=== PATIENT | male | born 1935 | race Caucasian/White ===

== ENCOUNTER 2023-09-17 10:14 | Outpatient (RCR) | payer MEDICARE, BC, SELFPAY ==
[2023-09-17 10:59] VITALS: BP 127/73; PULSE 86; RESP 18; TEMP 36.1; BMI 32.8
--- NOTE | 2023-09-17 13:16 | HP.PCM_ITS ---
History of Present Illness Date of Service: 09/17/23 Chief Complaint: Follow-up open Shearing wound on right buttocks History of Wound: 88-year-old white male with a superficial open wound on his right buttocks with scabbing and areas near the anus. History of the same on the left side. Lives alone daughters are just close around the corner keep an eye on him. Daughter state he does sleep in his bed but likes to get up in the night when he gets confused and sleeps in a chair. Does have a recliner. Discussed with daughter that it is Shearing that it is getting too and that the recliner he sits and he should have a gel cushion to sit on solid. No obvious malnutrition noted skin turgor is good no sign of infection no redness no swelling no depth. History of diabetes, BPH and has a suprapubic catheter. Also has Parkinson's which makes him unsteady on his feet. PFSH Home Medications ?Medication ?Instructions ?Recorded ?Last Taken ?Type biotin 5 mg capsule (Meribin) 5 mg PO DAILY 09/17/23 Unknown History calcium cmb 1 tab PO DAILY 09/17/23 Unknown History [id number] 120 mg-1,000 unit-10 mg tablet carbidopa 25 mg-levodopa 100 mg 2 tab PO 4X/DAY 09/17/23 Unknown History tablet cephalexin 500 mg capsule 500 mg PO BID 09/17/23 Unknown History cranberry extract 200 mg capsule 200 mg PO DAILY 09/17/23 Unknown History empagliflozin 10 mg tablet 10 mg PO DAILY 09/17/23 Unknown History (Jardiance) finasteride 5 mg tablet (Proscar) 5 mg PO DAILY 09/17/23 Unknown History furosemide 20 mg tablet (Lasix) 20 mg PO BID 09/17/23 Unknown History glimepiride 2 mg tablet 2 mg PO BID 09/17/23 Unknown History glimepiride 2 mg tablet 2 mg PO BID 09/17/23 Unknown History glimepiride 2 mg tablet 2 mg PO QDAY 09/17/23 Unknown History insulin glargine 100 unit/mL 5 unit subcut QPM 09/17/23 Unknown History subcutaneous solution (Lantus U-100 Insulin) lisinopril 20 mg tablet 20 mg PO DAILY 09/17/23 Unknown History mecobalamin (vitamin B12) 1,000 1,000 mcg PO DAILY 09/17/23 Unknown History mcg chewable tablet (B12 Active) metformin 500 mg tablet,extended 1,000 mg PO BID 09/17/23 Unknown History release 24 hr methimazole 10 mg tablet 10 mg PO 09/17/23 Unknown History methimazole 5 mg tablet 10 mg PO DAILY 09/17/23 Unknown History multivitamin (Daily Multi-Vitamin 1 tab PO DAILY 09/17/23 Unknown History tablet) nifedipine 60 mg tablet,extended 60 mg PO DAILY 09/17/23 Unknown History release rosuvastatin 10 mg tablet 10 mg PO DAILY 09/17/23 Unknown History Allergy/AdvReac Type Severity Reaction Status Date / Time Sulfa (Sulfonamide Allergy Mild Shortness Verified 09/17/23 10:57 Antibiotics) of breath ROS Constitutional Constitutional: Reports systems reviewed and no addt'l complaints, except as documented Eyes Eyes: Reports systems reviewed and no addt'l complaints, except as documented ENT HEENT: Reports systems reviewed and no addt'l complaints, except as documented Cardiovascular Cardiovascular: Reports systems reviewed and no addt'l complaints, except as documented Respiratory/Chest Respiratory/Chest: Reports systems reviewed and no addt'l complaints, except as documented Gastrointestinal Gastrointestinal: Reports systems reviewed and no addt'l complaints, except as documented Genitourinary Genitourinary: Reports systems reviewed and no addt'l complaints, except as documented Musculoskeletal Musculoskeletal: Reports systems reviewed and no addt'l complaints, except as documented Integumentary Integumentary: Reports wounds and other Details: Scabbed and open wound on right buttocks near anus of Shearing superficial wound. Neurologic Neurologic: Reports systems reviewed and no addt'l complaints, except as documented Psychiatric Psychiatric: Reports systems reviewed and no addt'l complaints, except as documented Endocrine Endocrinology: Reports systems reviewed and no addt'l complaints, except as documented Hematologic/Lymphatic Hematologic/Lymphatic: Reports systems reviewed and no addt'l complaints, except as documented Allergic/Immunologic Allergic/Immunologic: Reports systems reviewed and no addt'l complaints, except as documented Vital Signs Vital Signs Vital Signs: 09/17/23 10:59 Temperature 96.9 F L Temperature Source Temporal Pulse Rate 86 Respiratory Rate 18 Blood Pressure 127/73 H Blood Pressure Mean 91 Blood Pressure Source Monitor Blood Pressure Position Semi-Fowlers Blood Pressure Location Left Arm Weight Weight: 197 lb Body Mass Index (BMI) 32.8 Physical Exam Const oriented x3 General Appearance: cooperative Exam Limitations: no limitations HEENT normocephalic Head and Scalp: normal to inspection Eyes PERRL Resp normal respiratory effort Effort and Inspection: able to speak in complete sentences Auscultation: clear to auscultation bilaterally Cardio regular rate and regular rhythm Palpation: normal PMI Rate: regular rate Rhythm: regular rhythm GI Auscultation: normoactive bowel sounds Back/Spine Cervical Spine: cervical ROM normal Thoracic Spine / Upper Back: normal to inspection Lumbar Spine / Lower Back: normal to inspection Extremity normal to inspection Skin Wounds: wounds noted Wound Narrative: Wounds noted right buttocks scarring on left buttocks superficial wound on the r ight near his anus Neuro oriented x3 Psych Appearance: grossly normal Speech: normal speech Thought Content: normal thought content Judgement: judgement good Debridement Note Debridement Note Wound debrided: Right buttocks ulcer stage II Laterality: Right Wound Grade/Stage: Stage II Anesthesia Used: 5% Lidocaine Gel Depth: Down to and including healthy tissue Percentage of wound debrided: 100 Instrument Used: 5mm curette and - (Scissors) Tissue Removed: Devitalized tissue fibrin Severity: Limited To Skin Breakdown Amount of bleeding with debridement: Mild Bleeding Controlled with: Compression and gauze Patient tolerated procedure: Patient tolerated procedure well Post-Debridement Measurements and Additional Note: Post-Debridement Measurements/Treatment MARTHA - Nurse 1 - General Ulcer Assessment Start: 09/17/23 10:54 Freq: Status: Active Protocol: BRIAN Activity Type Activity Date Activity User E-sign Co-sign Detail Recorded Client Recorded Date Recorded By Document 09/17/23 10:59 RB wound cnter 09/17/23 11:06 RB 09/17/23 10:59 - Today's Visit Information Type of service Initial Visit Arrival Mode Ambulatory Transfer Assistance None Patient Identification Verified (Name & Yes ) Patient Requires Transmission-Based No Precautions Height and Weight Height 5 ft 5 in Weight 197 lb Weight in Pounds 197.0 lbs Body Mass Index (BMI) 32.8 BMI Classification Obese BSA - Gauri 1.97 Vital Signs Temperature (97.8 F-99.1 F) 96.9 F L Temperature Source Temporal Pulse Rate (60-100) 86 Pulse Location Monitor Respiratory Rate (12-18) 18 Respiratory rate source Observation Blood Pressure (90/60-120/80) 127/73 H Blood Pressure Mean 91 Source Monitor Position Semi-Fowlers Blood Pressure Location Left Arm History Since Last Visit- (Skip if this is Patient's initial visit) Have you changed medications since your No last visit? Any new allergies or adverse reactions No Had a fall/change in ADL's that may No increase risk of falls Signs or symptoms of abuse and/or No neglect since last visit Have you been in the hospital since your No last visit? Has dressing in place as prescribed Yes Has compression in place as prescribed No Has offloadiing in place as prescribed No Experienced any changes in pain level or No management Pain Scale: 0-10 Numeric Is Patient Pain Free? Yes Communication Assessment Preferred language Mosotho Felt Machine Mechanic Required No Able to Read Yes Able to Write Yes Communication Tools None Right Hearing Abillity Normal Left Hearing Abillity Normal Visual Assistive Devices Glasses Teaching Assessment Preferences Verbal,Written, Demonstration Barriers to Learning None Readiness To Learn Good Willingness to Engage in Self Management Med Activies Readiness to Engage in Self Management Med Activities Anxiety Level Calm Cooperation Cooperative Perception Coherent Interest in Health Problem Asks Questions Education Importance Acknowledges Need Does Patient Smoke tobacco or other Yes substances Is Patient Diabetic Yes Functional Assessment Recent Decline in Ability to Perform Denies Any Declines Assistive Device With Patient No Culture/Presybeterian/Geothermal Field Technician Cultural/Presybeterian Needs that may affect No Treatment Plan Would you allow our hospital physician coding specialist to No meet you for the purpose of spiritual/ emotional support? Geothermal Field Technician to contact place of yazidi No Teaching: Wound Center *Welcome to the Wound Center -Person Taught Patient -Teaching Method Discussion, Demonstration -Response to teaching Verbalize understanding - Nurse 1 - General Ulcer Measurement Start: 09/17/23 10:54 Freq: Status: Active Protocol: Activity Type Activity Date Activity User E-sign Co-sign Detail Recorded Client Recorded Date Recorded By Document 09/17/23 10:59 RB wound cnter 09/17/23 11:06 RB 09/17/23 10:59 Wound Center Nurse 1 1. R buttock - cluster -Combined with other wound No -Current Size (cm) - Length 0.6 -Current Size (cm) - Width 0.4 -Current Size (cm) - Depth 0.1 -Total Square Cm 0.24 -Photo Taken Yes -Tunneling No -Undermining/Tunneling No -Circular Undermining No -Exudate Amt Medium -Exudate Type Serosanguineous -Wound Margin Distinct, Outline Attached -Granulation Amt Medium (34-66%) -Granulation Quality [place] -Slough/Fibrin Yes -Necrosis Amt Medium (34-66%) -Necrotic Tissue Type Adherent Slough -Structure Exposed N/A -Texture (Abbie-wound Skin Appearance) Assessed -Moisture (Abbie-wound Skin Appearance) Assessed -Color (Abbie-wound Skin Appearance) Assessed -Temperature (Abbie-wound Skin No Abnormality Appearance) (Pt Warm) -Tenderness on Palpation (Abbie-wound No Skin Appearance) -Ulcer Cleansing Wound Cleanser -Foul Odor after Cleansing No -Anesthetic Used 5% Lidocaine Gel WC - Nurse 2 - General Ulcer CM Notes Start: 09/17/23 10:54 Freq: Status: Active Protocol: Activity Type Activity Date Activity User E-sign Co-sign Detail Recorded Client Recorded Date Recorded By Document 09/17/23 11:22 [id number] 09/17/23 11:26 09/17/23 11:22 Wound Center Nurse 2 -Time 11:22 -Correct Patient Yes -Correct Side, Site, Position Yes -Correct Procedure Yes -Procedure Performed Yes -Type of Procedure Debridement -Clinical Debridement Subcutaneous -Tissue Removed Subcutaneous -Post Debridement (cm) - Length 1.7 -Post Debridement (cm) - Width 0.5 -Post Debridement (cm) - Depth 0.1 -Total Square (Post) (cm) 0.85 -Area of Debridement (cm) - Length 1.7 -Area of Debridement (cm) - Width 0.5 -Total Square (Area) (cm) 0.85 -Tunneling No -Undermining/Tunneling No -Circular Undermining No -Wound/Ulcer Outcome Not Healed -Ulcer Cleansing Rinsed/ Irrigated with Saline -Bleeding Controlled with Pressure -Treatment Response Procedure Tolerated Well -Debridement - Subq, 1st 20sq cm Yes Pain Scale: 0-10 Numeric Is Patient Pain Free? Yes - Nurse 3 - General Ulcer D/C NN Start: 09/17/23 10:54 Freq: Status: Active Protocol: Activity Type Activity Date Activity User E-sign Co-sign Detail Recorded Client Recorded Date Recorded By Document 09/17/23 11:39 [facility] [id number] 09/17/23 11:40 [facility] 09/17/23 11:39 Wound Care Center Nurse 3 1. R buttock - cluster -Ulcer Cleansing Rinsed/ Irrigated with Saline -Foul Odor after Cleansing No -Primary Dressing Applied Fibracol Plus 4x4 -Other Dressing abd -Primary Dressing Covered/Secured with Secured with Tape -Fibracol Plus 4x4 1 Treatment Response Procedure Tolerated Well Pain Scale: 0-10 Numeric Is Patient Pain Free? Yes WC - Visit Discharge Discharge Condition Stable Ambulatory Status Ambulatory,Cane Transportation Private Auto Accompanied by seymour Assessment/Plan Assessment/Plan (1) Decubitus ulcer of buttock, stage 2: CODE(S): L89.302 - Pressure ulcer of unspecified buttock, stage 2 QUALIFIERS: Laterality: right Qualified Code(s): L89.312 - Pressure ulcer of right buttock, stage 2 PLAN: Wash the right buttocks with antibacterial soap and water pat dry apply Fibracol to wound base moistened and cover with a dry dressing 1-2 3 times a day depending on bathroom usage. Follow-up in 1 week (2) Diabetes mellitus with hyperglycemia: CODE(S): E11.65 - Type 2 diabetes mellitus with hyperglycemia QUALIFIERS: Diabetes mellitus type: type 2 Diabetes mellitus chcf insulin use: without terminal operations supervisor use Qualified Code(s): E11.65 - Type 2 diabetes mellitus with hyperglycemia (3) Parkinsons disease: CODE(S): G20.A1 - Parkinson's disease without dyskinesia, without mention of fluctuations QUALIFIERS: Dyskinesia presence: unspecified whether dyskinesia Fluctuating manifestations: unspecified whether manifestations fluctuate Qualified Code(s): G20.A1 - Parkinson's disease without dyskinesia, without mention of fluctuations
== END 2023-09-19 23:59 | disposition home or self-care (01) ==
LOC: WC 10:14
PROVIDERS: PCP Internal Medicine; Referring Provider Internal Medicine; Visit Provider Nurse Practitioner
DX: L89.312 Pressure ulcer of right buttock, stage 2 (principal); G20.A1 Parkinson's disease without dyskinesia, without mention of fluctuations; E11.65 Type 2 diabetes mellitus with hyperglycemia
CPT/HCPCS: 11042; 99203; G0463

== ENCOUNTER 2023-09-24 10:08 | Outpatient (RCR) | payer MEDICARE, BC, SELFPAY ==
[2023-09-20 02:41] VITALS: BP 127/73; PULSE 86; RESP 18; TEMP 36.1; BMI 32.8
[2023-09-24 10:29] VITALS: BP 103/50; PULSE 70; RESP 18; TEMP 36.6; BMI 32.8
--- NOTE | 2023-09-24 11:40 | PCM.WC.PN ---
History of Present Illness Date of Service: 09/24/23 Chief Complaint: Follow-up open Shearing wound on right buttocks History of Wound: 88-year-old white male with a superficial open wound on his right buttocks with scabbing and areas near the anus. History of the same on the left side. Lives alone daughters are just close around the corner keep an eye on him. Daughter state he does sleep in his bed but likes to get up in the night when he gets confused and sleeps in a chair. Does have a recliner. Discussed with daughter that it is Shearing that it is getting too and that the recliner he sits and he should have a gel cushion to sit on solid. No obvious malnutrition noted skin turgor is good no sign of infection no redness no swelling no depth. History of diabetes, BPH and has a suprapubic catheter. Also has Parkinson's which makes him unsteady on his feet. Progress of Wound: Right buttocks is healed no sign of infection patient has been doing everything he supposed to and it shows. Subjective Subjective Is pleased with outcomes and will be discharged Objective Data Objective Data Well-healed no sign of infection patient will be discharged from the wound center can follow-up as needed Vital Signs: Vital Signs Temp Pulse Resp BP 98 F 70 18 103/50 L 09/24/23 10:29 09/24/23 10:29 09/24/23 10:09/24/23 10:29 Weight: 197 lb Body Mass Index (BMI) 32.8 Physical Exam Const oriented x3 General Appearance: cooperative Exam Limitations: no limitations HEENT normocephalic Head and Scalp: normal to inspection Eyes PERRL Resp normal respiratory effort Effort and Inspection: able to speak in complete sentences Auscultation: clear to auscultation bilaterally Cardio regular rate and regular rhythm Palpation: normal PMI Rate: regular rate Rhythm: regular rhythm GI Auscultation: normoactive bowel sounds Back/Spine Cervical Spine: cervical ROM normal Thoracic Spine / Upper Back: normal to inspection Lumbar Spine / Lower Back: normal to inspection Extremity normal to inspection Skin Wounds: wounds noted Wound Narrative: Wounds noted right buttocks scarring on left buttocks superficial wound on the right near his anus Neuro oriented x3 Psych Appearance: grossly normal Speech: normal speech Thought Content: normal thought content Judgement: judgement good Debridement Note Debridement Note No debridement was completed: No debridement was completed today Post-Debridement Measurements and Additional Note: Post-Debridement Measurements/Treatment WC - Nurse 1 - General Ulcer Assessment Start: 09/24/23 10:28 Freq: Status: Active Protocol: BRIAN Activity Type Activity Date Activity User E-sign Co-sign Detail Recorded Client Recorded Date Recorded By Document 09/24/23 10:29 [email or web address] 09/24/23 10:39 MI 09/24/23 10:29 - Today's Visit Information Type of service Follow-up Visit (Physician/TAWER ) Arrival Mode Ambulatory Accompanied by daughter Patient Identification Verified (Name & Yes ) Safety Precautions Fall Prevention Height and Weight Body Mass Index (BMI) 32.8 BMI Classification Obese Vital Signs Temperature (97.8 F-99.1 F) 98 F Temperature Source Temporal Pulse Rate (60-100) 70 Pulse Location Monitor Respiratory Rate (12-18) 18 Respiratory rate source Observation Blood Pressure (90/60-120/80) 103/50 L Blood Pressure Mean (mm Hg) 67 Source Monitor Position Sitting Blood Pressure Location Right Arm History Since Last Visit- (Skip if this is Patient's initial visit) Has dressing in place as prescribed Yes Has compression in place as prescribed N/A Has offloadiing in place as prescribed N/A Experienced any changes in pain level or Yes management Left Footwear Regular Shoe Right Footwear Regular Shoe Pain Scale: 0-10 Numeric Is Patient Pain Free? Yes - Nurse 1 - General Ulcer Measurement Start: 09/24/23 10:28 Freq: Status: Active Protocol: Activity Type Activity Date Activity User E-sign Co-sign Detail Recorded Client Recorded Date Recorded By Document 09/24/23 10:29 [facility] [email or web address] 09/24/23 10:39 MI 09/24/23 10:29 Wound Center Nurse 1 1. R buttock - cluster -Current Size (cm) - Length 0.1 -Current Size (cm) - Width 0.1 -Current Size (cm) - Depth 0.1 -Total Square Cm 0.01 -Date of Last Picture (Recall this 09/24/23 field) -Photo Taken Yes -Epithelialization Large 67-100% -Tunneling No -Undermining/Tunneling No -Circular Undermining No -Wound Margin Flat & Intact -Granulation Amt None Present (0 %) -Slough/Fibrin No -Texture (Abbie-wound Skin Appearance) Assessed -Moisture (Abbie-wound Skin Appearance) Assessed -Color (Abbie-wound Skin Appearance) Assessed -Temperature (Abbie-wound Skin No Abnormality Appearance) (Pt Warm) -Tenderness on Palpation (Abbie-wound No Skin Appearance) -Ulcer Cleansing Soap and Water -Foul Odor after Cleansing No Lower Limb Edema Present NA - Nurse 2 - General Ulcer CM Notes Start: 09/24/23 10:28 Freq: Status: Active Protocol: Activity Type Activity Date Activity User E-sign Co-sign Detail Recorded Client Recorded Date Recorded By Document 09/24/23 10:56 [facility] [id number] 09/24/23 10:57 [facility] 09/24/23 10:56 Wound Center Nurse 2 1. R buttock - cluster -Post Debridement (cm) - Length 0 -Post Debridement (cm) - Width 0 -Post Debridement (cm) - Depth 0 -Total Square (Post) (cm) 0 -Area of Debridement (cm) - Length 0 -Area of Debridement (cm) - Width 0 -Total Square (Area) (cm) 0 -Wound/Ulcer Outcome Healed- Epithelialized Pain Scale: 0-10 Numeric Is Patient Pain Free? Yes - Nurse 3 - General Ulcer D/C NN Start: 09/24/23 10:28 Freq: Status: Active Protocol: Activity Type Activity Date Activity User E-sign Co-sign Detail Recorded Client Recorded Date Recorded By Document 09/24/23 11:04 [facility] [email or web address] 09/24/23 11:06 MT 09/24/23 11:04 Wound Care Center Nurse 3 1. R buttock - cluster -Primary Dressing Applied Mepilex Border -Mepilex Border 3 Pain Scale: 0-10 Numeric Is Patient Pain Free? Yes WC - Visit Discharge Discharge Condition Stable Ambulatory Status Cane Transportation Private Auto Medication Reconcilliation completed & No provided to patient/care provider Clinical Summary of Care Provided Yes Notes: pt is healed. daughter and pt verbalized understanding of wound care. Assessment/Plan Assessment/Plan (1) Decubitus ulcer of buttock, stage 2: CODE(S): L89.302 - Pressure ulcer of unspecified buttock, stage 2 QUALIFIERS: Laterality: right Qualified Code(s): L89.312 - Pressure ulcer of right buttock, stage 2 PLAN: Discharge from the wound center follow-up as needed Continue using the gel cushion (2) Diabetes mellitus with hyperglycemia: CODE(S): E11.65 - Type 2 diabetes mellitus with hyperglycemia QUALIFIERS: Diabetes mellitus type: type 2 Diabetes mellitus fpc insulin use: without fpc use Qualified Code(s): E11.65 - Type 2 diabetes mellitus with hyperglycemia (3) Parkinsons disease: CODE(S): G20.A1 - Parkinson's disease without dyskinesia, without mention of fluctuations QUALIFIERS: Dyskinesia presence: unspecified whether dyskinesia Fluctuating manifestations: unspecified whether manifestations fluctuate Qualified Code(s): G20.A1 - Parkinson's disease without dyskinesia, without mention of fluctuations
== END 2023-09-24 11:41 | disposition home or self-care (01) ==
LOC: WC 10:08
PROVIDERS: PCP Internal Medicine; Referring Provider Internal Medicine; Visit Provider Nurse Practitioner
DX: L89.312 Pressure ulcer of right buttock, stage 2 (principal); G20.A1 Parkinson's disease without dyskinesia, without mention of fluctuations; E11.65 Type 2 diabetes mellitus with hyperglycemia
CPT/HCPCS: 99213; G0463

== ENCOUNTER 2024-09-15 09:00 | Outpatient (RCR) | payer MEDICARE, BC, SELFPAY ==
[2024-09-08 08:15] VITALS: BP 147/70; PULSE 59; RESP 18; TEMP 36.6; BMI 25.4
--- NOTE | 2024-09-08 09:58 | PCM.WC.PN ---
History of Present Illness Date of Service: 09/08/24 Chief Complaint: Follow-up open open wound on L buttocks History of Wound: 89-year-old white male who [facility] has a suprapubic catheter and has Parkinson's and is diabetic. Does not walk well at all so he sits in a chair most of the day or lays down and has developed an open sore on and off on the left and right buttocks. Today he is here for the left buttocks which is healing nicely but it still open mostly a stage II. Progress of Wound: Open wound left buttocks stage II. Patient is well-nourished and skin is supple around the area there is no redness or sign of infection or pus or drainage. Subjective Subjective Patient does not talk much because of his Parkinson's he is more nonverbal he does speak when spoken to but very little and he has problems with walking and care for himself patient is being taken care of by [facility]. He does have a suprapubic catheter and he does have an open area on his left buttocks that is not full-thickness. Objective Data Objective Data As stated above skin is supple around the area of the wound is dark and erythematous no sign of infection such as increased pain redness or drainage half healed. Will use fibber call Adaptic and foam. He has no incontinence issues with the urine because he is got a suprapubic catheter. Vital Signs: Vital Signs Temp Pulse Resp BP 97.8 F 59 L 18 147/70 H 09/08/24 08:15 09/08/24 08:15 09/08/24 08:15 09/08/24 08:15 Weight: 167 lb 2.751 oz Body Mass Index (BMI) 25.4 Lab / Micro Data Attestation: I reviewed the patient's lab results. Debridement Note Debridement Note Wound debrided: Left buttocks wound decubitus ulcer Laterality: Left Wound Grade/Stage: Stage II Type of Debridement: Excisional debridement Anesthesia Used: 5% Lidocaine Gel Depth: Down to and including healthy tissue and in the subcutaneous layer Instrument Used: 5mm curette Tissue Removed: Fibrin Severity: Limited To Skin Breakdown Amount of bleeding with debridement: Mild Bleeding Controlled with: Compression and gauze Patient tolerated procedure: Patient tolerated procedure well Post-Debridement Measurements and Additional Note: Post-Debridement Measurements/Treatment WC - Nurse 1 - General Ulcer Assessment Start: 09/08/24 08:12 Freq: Status: Active Protocol: BRIAN Activity Type Activity Date Activity User E-sign Co-sign Detail Recorded Client Recorded Date Recorded By Document 09/08/24 08:15 MARIYA [id number] 09/08/24 08:31 DL 09/08/24 08:15 - Today's Visit Information Type of service Initial Visit Arrival Mode Wheelchair Transfer Assistance Manual Transfer Assist (Other) x2 Patient Identification Verified (Name & Yes ) Patient Requires Transmission-Based No Precautions Height and Weight Height 5 ft 8 in Weight 167 lb 2.751 oz Weight in Pounds 167.2 lbs Body Mass Index (BMI) 25.4 BMI Classification Overweight Vital Signs Temperature (97.8 F-99.1 F) 97.8 F Temperature Source Temporal Pulse Rate (60-100) 59 L Pulse Location Monitor Respiratory Rate (12-18) 18 Respiratory rate source Observation Blood Pressure (90/60-120/80) 147/70 H Blood Pressure Mean (mm Hg) 95 Source Monitor Pain Scale: 0-10 Numeric Is Patient Pain Free? Yes Communication Assessment Preferred language Maltese Senior Group Manager Required No Able to Read Yes Able to Write Yes Communication Tools None Right Hearing Abillity Normal Left Hearing Abillity Normal Visual Assistive Devices Glasses Teaching Assessment Preferences Verbal,Written, Demonstration Barriers to Learning None Readiness To Learn Good Willingness to Engage in Self Management Med Activies Readiness to Engage in Self Management Med Activities Anxiety Level Calm Cooperation Cooperative Perception Coherent Interest in Health Problem Asks Questions Education Importance Acknowledges Need Does Patient Smoke tobacco or other No substances Is Patient Diabetic No Functional Assessment Recent Decline in Ability to Perform Ambulation, Transferring Assistive Device With Patient [facility] - Nurse 1 - General Ulcer Measurement Start: 09/08/24 08:12 Freq: Status: Active Protocol: Activity Type Activity Date Activity User E-sign Co-sign Detail Recorded Client Recorded Date Recorded By Document 09/08/24 08:15 MARIYA [id number] 09/08/24 08:31 DL 09/08/24 08:15 Wound Center Nurse 1 #2 L Buttocks -Current Size (cm) - Length 0.8 -Current Size (cm) - Width 0.5 -Current Size (cm) - Depth 0.1 -Total Square Cm 0.40 -Photo Taken Yes -Exudate Amt None Present -Wound Margin Distinct, Outline Attached -Granulation Amt Large (67-100%) -Granulation Quality [employer] -Necrosis Amt None Present (0 %) -Structure Exposed N/A -Texture (Abbie-wound Skin Appearance) Scarring -Moisture (Abbie-wound Skin Appearance) No Abnormality -Color (Abbie-wound Skin Appearance) No Abnormality -Temperature (Abbie-wound Skin No Abnormality Appearance) (Pt Warm) -Tenderness on Palpation (Abbie-wound Yes Skin Appearance) -Ulcer Cleansing Rinsed/ Irrigated with Saline -Foul Odor after Cleansing No -Anesthetic Used 5% Lidocaine Gel MARTHA - Nurse 2 - General Ulcer CM Notes Start: 09/08/24 08:12 Freq: Status: Active Protocol: Activity Type Activity Date Activity User E-sign Co-sign Detail Recorded Client Recorded Date Recorded By Document 09/08/24 08:46 [facility] [id number] 09/08/24 08:51 [facility] 09/08/24 08:46 Wound Center Nurse 2 #3- L BUTTOCK STAGE 2 -Time 08:47 -Correct Patient Yes -Correct Side, Site, Position Yes -Correct Procedure Yes -Procedure Performed Yes -Type of Procedure Debridement -Clinical Debridement Subcutaneous -Tissue Removed Subcutaneous -Post Debridement (cm) - Length 0.6 -Post Debridement (cm) - Width 0.6 -Post Debridement (cm) - Depth 0.2 -Total Square (Post) (cm) 0.36 -Area of Debridement (cm) - Length 0.6 -Area of Debridement (cm) - Width 0.6 -Total Square (Area) (cm) 0.36 -Tunneling No -Undermining/Tunneling No -Circular Undermining No -Wound/Ulcer Outcome Not Healed -Ulcer Cleansing Rinsed/ Irrigated with Saline -Foul Odor after Cleansing No -Bioengineered Tissue No -Bleeding Controlled with Pressure -Treatment Response Procedure Tolerated Well -Debridement - Subq, 1st 20sq cm Yes Pain Scale: 0-10 Numeric Is Patient Pain Free? Yes - Nurse 3 - General Ulcer D/C NN Start: 09/08/24 08:12 Freq: Status: Active Protocol: Activity Type Activity Date Activity User E-sign Co-sign Detail Recorded Client Recorded Date Recorded By Document 09/08/24 09:17 DL [id number] 09/08/24 09:19 DL 09/08/24 09:17 Wound Care Center Nurse 3 #3- L BUTTOCK STAGE 2 -Ulcer Cleansing Soap and Water -Foul Odor after Cleansing No -Primary Dressing Applied Fibracol Plus 4x4,NonAdherent Contact Layer, Silicone Border Foam 4x4 -Fibracol Plus 4x4 1 -Silicone Border Foam 4x4 1 Treatment Response Procedure Tolerated Well Pain Scale: 0-10 Numeric Is Patient Pain Free? 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 (2) Diabetes mellitus with hyperglycemia: CODE(S): E11.65 - Type 2 diabetes mellitus with hyperglycemia QUALIFIERS: Diabetes mellitus type: type 2 Diabetes mellitus skilled nursing insulin use: without intermediate manager use Qualified Code(s): E11.65 - Type 2 diabetes mellitus with hyperglycemia PLAN: Diabetes A1c is high needs to monitor and control sugars better (3) Parkinsons disease: CODE(S): G20.A1 - Parkinson's disease without dyskinesia, without mention of fluctuations QUALIFIERS: Dyskinesia presence: unspecified whether dyskinesia Fluctuating manifestations: unspecified whether manifestations fluctuate Qualified Code(s): G20.A1 - Parkinson's disease without dyskinesia, without mention of fluctuations
--- NOTE | 2024-09-09 10:17 | WC ---
PHOTO 09/08/24 LEFT BUTTOCKS
[2024-09-15 09:05] VITALS: BP 100/51; PULSE 77; RESP 15; TEMP 36.1; BMI 25.4
--- NOTE | 2024-09-15 11:58 | PN.PCM_ITS ---
History of Present Illness Date of Service: 09/15/24 Chief Complaint: Follow-up open open wound on L buttocks History of Wound: 89-year-old white male [facility] has a suprapubic catheter and has Parkinson's and is diabetic. Does not walk well at all so he sits in a chair most of the day or lays down and has developed an open sore on and off on the left and right buttocks. Today he is here for the left buttocks which is healing nicely but it still open mostly a stage II. Progress of Wound: Open wound left buttocks stage II is healed. Patient is well-nourished and skin is supple around the area there is no redness or sign of infection or pus or drainage. He will be discharged from the wound center and he can follow-up as needed we did suggest that he use A&E ointment 2-3 times a day to the buttocks area for prevention Subjective Subjective Daughter and patient are very happy with outcomes Objective Data Objective Data Buttocks are healed there is no reason to return patient can follow-up as needed if there is any more issues otherwise just use A&E ointment. Vital Signs: Vital Signs Temp Pulse Resp BP 97 F L 77 15 100/51 L 09/15/24 09:05 09/15/24 09:05 09/15/24 09:05 09/15/24 09:05 Weight: 167 lb 2.751 oz Body Mass Index (BMI) 25.4 Physical Exam Const oriented x3 General Appearance: cooperative Exam Limitations: no limitations HEENT normocephalic Head and Scalp: normal to inspection Eyes PERRL Resp normal respiratory effort Effort and Inspection: able to speak in complete sentences Auscultation: clear to auscultation bilaterally Cardio regular rate and regular rhythm Palpation: normal PMI Rate: regular rate Rhythm: regular rhythm GI Auscultation: normoactive bowel sounds Back/Spine Cervical Spine: cervical ROM normal Thoracic Spine / Upper Back: normal to inspection Lumbar Spine / Lower Back: normal to inspection Extremity normal to inspection Skin Wounds: wounds noted Wound Narrative: Wounds noted right buttocks scarring on left buttocks superficial wound on the right near his anus Neuro oriented x3 Psych Appearance: grossly normal Speech: normal speech Thought Content: normal thought content Judgement: judgement good Debridement Note Debridement Note No debridement was completed: No debridement was completed today Post-Debridement Measurements and Additional Note: Post-Debridement Measurements/Treatment WC - Nurse 1 - General Ulcer Assessment Start: 09/08/24 08:12 Freq: Status: Active Protocol: BRIAN Activity Type Activity Date Activity User E-sign Co-sign Detail Recorded Client Recorded Date Recorded By Document 09/08/24 08:15 DL [id number] 09/08/24 08:31 DL Document 09/15/24 09:05 ML [id number] 09/15/24 09:06 ML 09/08/24 09/15/24 08:15 09:05 WC - Today's Visit Information Type of service Initial Visit Follow-up Visit (Physician/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 PLANNER/PRODUCTION PLANNER ) Arrival Mode Wheelchair Wheelchair Transfer Assistance Manual Manual Transfer Assist (Other) x2 Patient Identification Verified (Name & Yes Yes ) Patient Requires Transmission-Based No No Precautions Height and Weight Height 5 ft 8 in Weight 167 lb 2.751 oz Weight in Pounds 167.2 lbs Body Mass Index (BMI) 25.4 25.4 BMI Classification Overweight Overweight Vital Signs Temperature (97.8 F-99.1 F) 97.8 F 97 F L Temperature Source Temporal Temporal Pulse Rate (60-100) 59 L 77 Pulse Location Monitor Monitor Respiratory Rate (12-18) 18 15 Respiratory rate source Observation Observation Blood Pressure (90/60-120/80) 147/70 H 100/51 L Blood Pressure Mean (mm Hg) 95 67 Source Monitor Monitor Position Sitting Blood Pressure Location Left Arm History Since Last Visit- (Skip if this is Patient's initial visit) Have you changed medications since your No last visit? Any new allergies or adverse reactions No Had a fall/change in ADL's that may No increase risk of falls Signs or symptoms of abuse and/or No neglect since last visit Have you been in the hospital since your No last visit? Has dressing in place as prescribed Yes Has compression in place as prescribed N/A Has offloadiing in place as prescribed Yes Experienced any changes in pain level or No management Pain Scale: 0-10 Numeric Is Patient Pain Free? Yes Yes Communication Assessment Preferred language Cook Islander Supervisor Metal Furniture Fabrication Required No Able to Read Yes Able to Write Yes Communication Tools None Right Hearing Abillity Normal Left Hearing Abillity Normal Visual Assistive Devices Glasses Teaching Assessment Preferences Verbal,Written, Demonstration Barriers to Learning None Readiness To Learn Good Willingness to Engage in Self Management Med Activies Readiness to Engage in Self Management Med Activities Anxiety Level Calm Cooperation Cooperative Perception Coherent Interest in Health Problem Asks Questions Education Importance Acknowledges Need Does Patient Smoke tobacco or other No substances Is Patient Diabetic No Functional Assessment Recent Decline in Ability to Perform Ambulation, Transferring Assistive Device With Patient [facility] - Nurse 1 - General Ulcer Measurement Start: 09/08/24 08:12 Freq: Status: Active Protocol: Activity Type Activity Date Activity User E-sign Co-sign Detail Recorded Client Recorded Date Recorded By Document 09/08/24 08:15 DL [id number] 09/08/24 08:31 DL Document 09/15/24 09:05 ML [id number] 09/15/24 09:06 ML 09/08/24 09/15/24 08:15 09:05 Wound Center Nurse 1 #3- L BUTTOCK STAGE 2 -Current Size (cm) - Length 0.1 -Current Size (cm) - Width 0.1 -Current Size (cm) - Depth 0.1 -Total Square Cm 0.01 -Exudate Amt None Present -Granulation Amt None Present (0 %) -Granulation Quality N/A -Slough/Fibrin No -Necrosis Amt None Present (0 %) -Texture (Abbie-wound Skin Appearance) Assessed -Moisture (Abbie-wound Skin Appearance) Assessed -Color (Abbie-wound Skin Appearance) Assessed -Tenderness on Palpation (Abbie-wound No Skin Appearance) -Ulcer Cleansing Rinsed/ Irrigated with Saline -Foul Odor after Cleansing Yes -Anesthetic Used 5% Lidocaine Gel #2 L Buttocks -Current Size (cm) - Length 0.8 -Current Size (cm) - Width 0.5 -Current Size (cm) - Depth 0.1 -Total Square Cm 0.40 -Photo Taken Yes -Exudate Amt None Present -Wound Margin Distinct, Outline Attached -Granulation Amt Large (67-100%) -Granulation Quality [place] -Necrosis Amt None Present (0 %) -Structure Exposed N/A -Texture (Abbie-wound Skin Appearance) Scarring -Moisture (Abbie-wound Skin Appearance) No Abnormality -Color (Abbie-wound Skin Appearance) No Abnormality -Temperature (Abbie-wound Skin No Abnormality Appearance) (Pt Warm) -Tenderness on Palpation (Abbie-wound Yes Skin Appearance) -Ulcer Cleansing Rinsed/ Irrigated with Saline -Foul Odor after Cleansing No -Anesthetic Used 5% Lidocaine Gel - Nurse 2 - General Ulcer CM Notes Start: 09/08/24 08:12 Freq: Status: Active Protocol: Activity Type Activity Date Activity User E-sign Co-sign Detail Recorded Client Recorded Date Recorded By Document 09/08/24 08:46 [facility] [id number] 09/08/24 08:51 [facility] Document 09/15/24 09:35 [facility] [id number] 09/15/24 09:38 [facility] 09/08/24 09/15/24 08:46 09:35 Wound Center Nurse 2 #3- L BUTTOCK STAGE 2 -Time 08:47 09:35 -Correct Patient Yes -Correct Side, Site, Position Yes -Correct Procedure Yes -Procedure Performed Yes No -Type of Procedure Debridement -Clinical Debridement Subcutaneous -Tissue Removed Subcutaneous -Post Debridement (cm) - Length 0.6 0 -Post Debridement (cm) - Width 0.6 0 -Post Debridement (cm) - Depth 0.2 0 -Total Square (Post) (cm) 0.36 0 -Area of Debridement (cm) - Length 0.6 0 -Area of Debridement (cm) - Width 0.6 0 -Total Square (Area) (cm) 0.36 0 -Tunneling No -Undermining/Tunneling No -Circular Undermining No -Wound/Ulcer Outcome Not Healed Healed- Epithelialized -Ulcer Cleansing Rinsed/ Irrigated with Saline -Foul Odor after Cleansing No -Bioengineered Tissue No -Bleeding Controlled with Pressure NA -Treatment Response Procedure Tolerated Well -Debridement - Subq, 1st 20sq cm Yes Pain Scale: 0-10 Numeric Is Patient Pain Free? Yes Yes - Nurse 3 - General Ulcer D/C NN Start: 09/08/24 08:12 Freq: Status: Active Protocol: Activity Type Activity Date Activity User E-sign Co-sign Detail Recorded Client Recorded Date Recorded By Document 09/08/24 09:17 DL [id number] 09/08/24 09:19 DL Document 09/15/24 09:41 [facility] [id number] 09/15/24 09:42 [facility] 09/08/24 09/15/24 09:17 09:41 Wound Care Center Nurse 3 #3- L BUTTOCK STAGE 2 -Ulcer Cleansing Soap and Water -Foul Odor after Cleansing No -Primary Dressing Applied Fibracol Plus 4x4,NonAdherent Contact Layer, Silicone Border Foam 4x4 -Fibracol Plus 4x4 1 -Silicone Border Foam 4x4 1 Treatment Response Procedure Procedure Tolerated Well Tolerated Well Pain Scale: 0-10 Numeric Is Patient Pain Free? 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 Care Liquor Grinding Mill Operator Care Facility Facility Orders Sent Yes Assessment/Plan Assessment/Plan (1) Decubitus ulcer of buttock, stage 2: CODE(S): L89.302 - Pressure ulcer of unspecified buttock, stage 2 QUALIFIERS: Laterality: left Qualified Code(s): L89.322 - Pressure ulcer of left buttock, stage 2 PLAN: Discharge from the wound center follow-up as needed all is resolved and healed Apply A&E ointment as a lubricant and to protect the new skin 2-3 times a day (2) Diabetes mellitus with hyperglycemia: CODE(S): E11.65 - Type 2 diabetes mellitus with hyperglycemia QUALIFIERS: Diabetes mellitus type: type 2 Diabetes mellitus senior care insulin use: without manager of manufacturing use Qualified Code(s): E11.65 - Type 2 diabetes mellitus with hyperglycemia PLAN: Diabetes A1c is high needs to monitor and control sugars better (3) Parkinsons disease: CODE(S): G20.A1 - Parkinson's disease without dyskinesia, without mention of fluctuations QUALIFIERS: Dyskinesia presence: unspecified whether dyskinesia Fluctuating manifestations: unspecified whether manifestations fluctuate Qualified Code(s): G20.A1 - Parkinson's disease without dyskinesia, without mention of fluctuations
--- NOTE | 2024-09-15 15:13 | WC ---
PHOTO 09/15/24 LEFT BUTTOCK
== END 2024-09-15 15:43 | disposition skilled nursing facility (03) ==
LOC: WC 09:00
PROVIDERS: PCP Internal Medicine; Referring Provider Internal Medicine; Visit Provider Nurse Practitioner
DX: L89.322 Pressure ulcer of left buttock, stage 2 (principal); G20.A1 Parkinson's disease without dyskinesia, without mention of fluctuations; E11.65 Type 2 diabetes mellitus with hyperglycemia
CPT/HCPCS: 11042; 99213; G0463